=== PATIENT | female | born 2000 | race American Indian/Alaskan Native ===

== ENCOUNTER 2021-08-09 10:51 | Emergency (ER) | payer OTHER ==
--- NOTE | 2021-08-09 12:30 | Emergency Department Report ---
ED General Adult HPI - General Chief complaint: Extremity Problem,Nontraumatic Stated complaint: RIGHT TOE PAIN Time Seen by Provider: 08/09/21 12:03 Source: patient Mode of arrival: Ambulatory Limitations: No Limitations - History of Present Illness Initial comments: 21-year-old -[place] female patient presents with complaints of right toe pain x5 days. She states she stubbed her toe and had bruising to the toe. She states the bruising and swelling have resolved, however the pain remains. Patient states she is having difficulty working because she wears [employer] boots and the pain worsens with with the wearing shoes. She rates her pain as a 7/10 in severity. She denies any difficulty with ambulation or loss of sensation in her toe or foot -: Sudden - Related Data Previous Rx's Medication Instructions Recorded Last Taken Type Naproxen 500 mg PO BID PRN #20 tablet 08/09/21 Unknown Rx Allergies Allergy/AdvReac Type Severity Reaction Status Date / Time No Known Allergies Allergy Verified 08/09/21 11:30 ED Review of Systems ROS: Stated complaint: RIGHT TOE PAIN Other details as noted in HPI Constitutional: denies: chills, fever Musculoskeletal: arthralgia. denies: joint swelling Skin: denies: change in color Neurological: denies: numbness, paresthesias, abnormal gait ED Past Medical Hx - Past Medical History Previous Medical History?: No - Surgical History Past Surgical History?: No - Medications Home Medications: Home Medications Medication Instructions Recorded Confirmed Last Taken Type Naproxen 500 mg PO BID PRN #20 tablet 08/09/21 Unknown Rx ED Physical Exam - General Limitations: No Limitations General appearance: alert, in no apparent distress - Head Head exam: Present: atraumatic, normocephalic - Eye Eye exam: Present: normal appearance - Extremities Exam Extremities exam: Present: other (Tenderness to palpation noted to right third digit without swelling or deformity; normal sensation, perfusion, and range of motion of the toe noted) - Neurological Exam Neurological exam: Present: alert, oriented X3, normal gait - Psychiatric Psychiatric exam: Present: normal affect, normal mood - Skin Skin exam: Present: warm, dry, intact, normal color. Absent: rash ED Course Vital Signs 08/09/21 08/09/21 11:40 13:52 Temperature 97.3 F L Pulse Rate 80 Respiratory 16 Rate Blood Pressure 128/65 [Right] O2 Sat by Pulse 99 Oximetry ED Medical Decision Making - Radiology Data Radiology results: report reviewed RIGHT TOE(S) 3 VIEW(S) INDICATION / CLINICAL INFORMATION: 3rd digit pain after injury 5 days ago COMPARISON: None available. FINDINGS: BONES / JOINT(S): No acute fracture or subluxation. No significant arthritis. SOFT TISSUES: Mild soft tissue swelling of the right 3rd toe. ADDITIONAL FINDINGS: None. - Medical Decision Making 21-year-old -[place] female patient presents with complaints of right toe pain x5 days. She states she stubbed her toe and had bruising to the toe. She states the bruising and swelling have resolved, however the pain remains. Patient states she is having difficulty working because she wears [employer] boots and the pain worsens with with the wearing shoes. She rates her pain as a 7/10 in severity. She denies any difficulty with ambulation or loss of sensation in her toe or foot X-rays negative for fracture. Will treat for toe sprain with rice method and NSAIDs. Recommend follow-up with PCP as needed. She is well-appearing and stable for discharge home. Strict return precautions were discussed in detail patient verbalized understanding. Critical care attestation.: If time is entered above; I have spent that time in minutes in the direct care of this critically ill patient, excluding procedure time. ED Disposition Clinical Impression: Injury of right toe Disposition: 01 HOME / SELF CARE / HOMELESS Is pt being admited?: No Condition: Stable Instructions: Turf Toe Prescriptions: Naproxen 500 mg PO BID PRN #20 tablet PRN Reason: pain Referrals: [facility] [Provider Group] - 3-5 Days Forms: Work/School Release Form(ED)
--- NOTE | 2021-08-09 13:13 | XRay Report ---
RIGHT TOE(S) 3 VIEW(S) INDICATION / CLINICAL INFORMATION: 3rd digit pain after injury 5 days ago COMPARISON: None available. FINDINGS: BONES / JOINT(S): No acute fracture or subluxation. No significant arthritis. SOFT TISSUES: Mild soft tissue swelling of the right 3rd toe. ADDITIONAL FINDINGS: None. Signer Name: Madhu Florian MD Signed: 08/09/2021 1:08 PM Workstation Name: [id number]
[2021-08-09 14:17] VITALS: BP 123/63
== END 2021-08-09 14:18 | disposition home or self-care (01) ==
LOC: ED 10:51
DX: S99.821A Other specified injuries of right foot, initial encounter (principal); Y93.89 Activity, other specified; Y99.9 Unspecified external cause status; Y92.89 Other specified places as the place of occurrence of the external cause; X58.XXXA Exposure to other specified factors, initial encounter
CPT/HCPCS: 99283